=== PATIENT | female | born 1950 | race Caucasian/White ===

== ENCOUNTER 2016-09-14 07:09 | Day surgery (SDC) | payer MEDICARE ==
[2016-09-14 07:36] LABS: GLUCOSE,POC 216 mg/dL (65-110)
[2016-09-14 08:21] VITALS: BMI 32.5
[2016-09-14] MEDS ORDERED: Propofol 10 mg/ml Inj (20 ML) ONE (10:01)
[2016-09-14] MEDS ORDERED: Lactated Ringer's 1,000 ML IV SCH (10:30)
--- NOTE | 2016-09-14 10:35 | CP.SDSHP ---
Same Day Surgery H & P - History Proposed Procedure: colonoscopy Pre-Op Diagnosis: h/o colon cancer. Poor prep before - Previous Medical/Surgical History Endocrine/Metabolic: Diabetes - Allergies Allergies: Allergies No Known Allergies Allergy (Verified 03/30/16 11:58) - Physical Exam Vital Signs: Vital Signs 09/14/16 09/14/16 08:29 10:04 Temperature 97.1 F L 97.1 F L Pulse Rate 72 72 Respiratory 19 19 Rate Blood Pressure 109/96 H 109/96 H O2 Sat by Pulse 100 100 Oximetry Mental Status: Alert & Oriented x3 Neuro: WNL Heart: WNL Lungs: WNL GI: WNL - Impression Impression: h/o colon cancer. Pt. Evaluated Today:Candidate for Anesthesia & Procedure: Yes - Date & Time Date: 09/14/16 Time: 10:00 Short Stay Discharge - Short Stay Discharge Admitting Diagnosis/Reason for Visit: PERSONAL HISTORY OF MALIGNANT NEOPL OF LARGE INTES Disposition: HOME/ ROUTINE
[2016-09-14 11:34] VITALS: TEMP 98.4
[2016-09-14 11:40] VITALS: BP 109/87; PULSE 75; RESP 19; O2SAT 98
== END 2016-09-14 11:37 | disposition home or self-care (01) ==
LOC: C.ENDO 07:09
PROVIDERS: ATTEND Internal Medicine Gastroenterology
DX: D12.8 Benign neoplasm of rectum (principal); D12.5 Benign neoplasm of sigmoid colon; K64.8 Other hemorrhoids; Z85.038 Personal history of other malignant neoplasm of large intestine; Z90.49 Acquired absence of other specified parts of digestive tract